=== PATIENT | male | born 1975 | race Caucasian/White ===

== ENCOUNTER 2019-12-19 07:47 | Outpatient (RCR) | payer OTHER ==
[~2019-12-19] VITALS: Ht 175.3 cm; Wt 104.9 kg
[2019-12-19] MEDS ORDERED: OMEP40CA27 PO (08:59)
[2019-12-19 09:31] LABS: BASOPHILS # (AUTO) 0.1 10^3/uL (0.0-0.1); BASOPHILS % (AUTO) 1 % (0-10); EOSINOPHILS # (AUTO) 0.3 10^3/uL (0.0-0.3); EOSINOPHILS % (AUTO) 3 % (0-10); HEMATOCRIT 47 % (40-54); HEMOGLOBIN 15.9 G/DL (13.3-17.7); LYMPHOCYTES # (AUTO) 1.3 X 10^3 (1.0-4.0); LYMPHOCYTES % (AUTO) 14 % (12-44); MEAN CORPUSCULAR HEMOGLOBIN 32 PG (25-34); MEAN CORPUSCULAR HGB CONC 34 G/DL (32-36); MEAN CORPUSCULAR VOLUME 93 FL (80-99); MEAN PLATELET VOLUME 8.8 FL (7.4-10.4); MONOCYTES # (AUTO) 0.9 X 10^3 (0.0-1.0); MONOCYTES % (AUTO) 9 % (0-12); NEUTROPHILS % (AUTO) 74 % (42-75); PLATELET COUNT 307 10^3/uL (130-400); RED CELL DISTRIBUTION WIDTH 14.8 % (10.0-14.5); WHITE BLOOD COUNT 9.6 10^3/uL (4.3-11.0)
[2019-12-19 09:33] VITALS: BP 151/110
[2019-12-19 09:45] LABS: CHLORIDE 101 MMOL/L (98-107); POTASSIUM 4.3 MMOL/L (3.6-5.0); SODIUM 139 MMOL/L (135-145)
[2019-12-19 09:47] LABS: CALCIUM 9.5 MG/DL (8.5-10.1); GLUCOSE 92 MG/DL (70-105)
[2019-12-19 09:49] LABS: CARBON DIOXIDE 30 MMOL/L (21-32)
[2019-12-19 09:51] LABS: CREATININE SERUM 1.07 MG/DL (0.60-1.30); GFR ESTIMATED > 60
[2019-12-19 09:52] LABS: BUN/CREATININE RATIO 7
== END 2019-12-19 10:02 | disposition home or self-care (01) ==
LOC: PREOP 07:47
PROVIDERS: ATTEND Otolaryngology Otolaryngology/Facial Plastic Surgery
DX: Z01.818 Encounter for other preprocedural examination (principal); Z01.810 Encounter for preprocedural cardiovascular examination; Z01.812 Encounter for preprocedural laboratory examination; Z11.59 Encounter for screening for other viral diseases; Z11.2 Encounter for screening for other bacterial diseases; J34.89 Other specified disorders of nose and nasal sinuses
CPT/HCPCS: 80048; 85025; 87081; U0002; 36415; 87635; 93005

== ENCOUNTER 2019-12-21 06:25 | Day surgery (SDC) | payer OTHER ==
[2019-12-21] VITALS (12 sets, daily range): BP systolic 152–184; BP diastolic 101–125
[~2019-12-21] VITALS: Ht 175.3 cm; Wt 104.9 kg
[~2019-12-21 06:25] MED LIST: OMEP40CA27 PO
--- OUTSIDE RECORDS SUMMARY | 2019-12-21 06:31 | XMS REPORT | Continuity of Care Document ---
Author Organization Unknown Address Unknown Phone Unavailable Allergies Active Description Code Type Severity Reaction Onset Reported/Identified Relationship to Patient Clinical Status Yes Penicillins [id number] Drug Aller gy Unknown unsure childhoo 12/19/2019 Medications There is no data. Problems There is no data. Procedures There is no data. Results Test Result Range Coronavirus SARS-CoV-2 SO 2018 - 0 08:00 Coronavirus Ab [Units/volume] in Serum Negative Negative Complete blood count (CBC) with automate d white blood cell (WBC) differential - 12/19/19 09:20 Blood leukocytes automated count (number/volume) 9.6 10*3/uL 4.3-11.0 Blood erythrocytes automated count (number/volume) 5.05 10*6/uL 4.35-5.85 Venous blood hemoglobin measurement (mass/volume) 15.9 g/dL 13.3-17.7 Blood hematocrit (volume fraction) 47 % 40-54 Automated erythrocyte mean corpuscular volume 93 [ foz_us] 80-99 Automated erythrocyte mean corpuscular h emoglobin (mass per erythrocyte) 32 pg 25-34 Automated erythrocyte mean corpuscular h emoglobin concentration measurement (mass/volume) 34 g/dL 32-36 Automated erythrocyte distribution width ratio 14. 8 % 10.0- 14.5 Automated blood platelet count (count/volume) 307 10*3/uL 130-400 Automated blood platelet mean volume measurement 8.8 [foz_us] 7.4-10.4 Automated blood neutrophils/100 leukocytes 74 % 42-75 Automated blood lymphocytes/100 leukocytes 14 % 12-44 Blood monocytes/100 leukocytes 9 % 0-12 Automated blood eosinophils/100 leukocytes 3 % 0-10 Automated blood basophils/100 leukocytes 1 % 0-10 Blood neutrophils automated count (number/volume) 7.0 10*3 1.8-7.8 Blood lymphocytes automated count (number/volume) 1.3 10*3 1.0-4.0 Blood monocytes automated count (number/volume) 0. 9 10*3 0.0-1.0 Automated eosinophil count 0.3 10*3/uL 0 .0-0.3 Automated blood basophil count (count/volume) 0.1 10*3/uL 0.0-0.1 Whole blood basic metabolic panel - 12/02 01/20 09:20 Serum or plasma sodium measurement (moles/volume) 139 mmol/L 135-145 Serum or plasma potassium measurement (moles/volume) 4.3 mmol/L 3.6-5.0 Serum or plasma chloride measurement (moles/volume) 101 mmol/L 98-107 Carbon dioxide 30 mmol/L 21-32 Serum or plasma anion gap determination (moles/volume) 8 mmol/L 5-14 Serum or plasma urea nitrogen measurement (mass/volume ) 8 mg/dL 7-18 Serum or plasma creatinine measurement (mass/volume) 1.07 mg/dL 0.60-1.30 Serum or plasma urea nitrogen/creatinine mass ratio 7 NRG Serum or plasma creatinine measurement w ith calculation of estimated glomerular filtration rate > NRG Serum or plasma glucose measurement (mass/volume) 92 mg/dL 70-105 Serum or plasma calcium measurement (mass/volume) 9.5 mg/dL 8.5-10.1 Methicillin resistant Staphylococcus aur eus (MRSA) screening culture - 12/19/19 09:20 Methicillin resistant Staphylococcus aureus (MRSA) scr eening culture NEG NRG Encounters ACCT No. Visit Date/Time Discharge Status Pt. Type Provider Facility Loc./Unit Complaint [id number] 08/04/2018 16:00:00 08/04/2018 23:59: 59 [facility] [id number] 12/21/2019 07:30:00 P EN Preadmit KRAIG CUENCA MD [facility] SDC NASOPHARYNGEAL MASS [id number] 12/19/2019 07:47:[address] Outpatient KRAIG CUENCA MD [facility] PREOP NASOPHARYNGEAL MASS
[2019-12-21] MEDS: LACTATED RINGERS 1,000 ML IV PRN ×2 (06:40→07:55)
[2019-12-21] MEDS ORDERED: fentaNYL INJECTION 100 MCG/2 ML AMP ONE (06:45)
[2019-12-21] MEDS ORDERED: proPOfol 200 MG/20 ML (DIPRIVAN) VIAL IV ONE ×2 (06:45→07:27)
[2019-12-21] MEDS ORDERED: ONDANSETRON 4 MG/2 ML (SDV) Z0FRAN ONE (06:45)
[2019-12-21] MEDS ORDERED: MIDAZOLAM 2 MG/2 ML (VERSED) VIAL ONE (06:45)
[2019-12-21] MEDS ORDERED: ROCURONIUM 10 MG/ML 5 ML SYRINGE IV ONE (06:45)
[2019-12-21] MEDS ORDERED: LACTATED RINGERS 1,000 ML IV ONE (06:45)
[2019-12-21] MEDS ORDERED: LIDOCAINE PF 2% 5 ML (XYLOCAINE) VIAL ONE (06:45)
[2019-12-21] MEDS ORDERED: DEXAMETHASONE 10 MG/ML (DECADRON) 1 ML VIAL ONE (06:47)
[2019-12-21] MEDS ORDERED: GLYCOPYRROLATE 0.2 MG/ML (ROBINUL) 2 ML VIAL ONE (06:47)
[2019-12-21] MEDS ORDERED: NEOSTIGMINE 3 MG/3 ML VIAL ONE (06:47)
[2019-12-21] MEDS ORDERED: SEVOFLURANE (ULTANE) 15 ML INHAL SOLN ONE ×4 (06:50→07:49)
--- NOTE | 2019-12-21 07:07 | Progress Note-Pre Operative ---
Pre-Operative Progress Note H&P Reviewed The H&P was reviewed, patient examined and no changes noted. Date Seen by Provider: Dec 21, 2019 Time Seen by Provider: :30 Date H&P Reviewed: Dec 21, 2019 Time H&P Reviewed: 06:30 Pre-Operative Diagnosis: Nasopharyngeal Mass KRAIG CUENCA MD Dec 21, 2019 07:06
[2019-12-21] MEDS ORDERED: NS IV 1000 ML 1,000 ML IV SCH (08:11)
--- NOTE | 2019-12-21 08:11 | Progress Note-Post Operative ---
Post-Operative Progess Note Surgeon (s)/Field Installation Technician (s) Surgeon KRAIG CUENCA MD Field Installation Technician n/a Pre-Operative Diagnosis Nasopharyngeal Mass Post-Operative Diagnosis same Post-Op Procedure Note Date of Procedure: Dec 21, 2019 Name of Procedure Performed: Removal of Nasopharyngeal Mass Description & Findings Description and Findings: n/a Anesthesia Type get Estimated Blood Loss 100cc Packing none. Specimen(s) collected/removed nasopharyngeal mass for permanaent and possible flow KRAIG CUENCA MD Dec 21, 2019 08:10
[2019-12-21] MEDS ORDERED: ONDANSETRON 4 MG/2 ML (SDV) Z0FRAN IVP PRN (08:15)
[2019-12-21] MEDS ORDERED: APAP 325 MG/10.15 ML LIQ (TYLENOL) UDC PO PRN (08:15)
[2019-12-21] MEDS ORDERED: MEPERIDINE (DEMEROL) INJ 50 MG/ML IVP ONE (08:15)
[2019-12-21] MEDS ORDERED: morphine INJ 10 MG/ML 1ML (SYR OR VIAL) IVP ONE (08:15)
[2019-12-21] MEDS ORDERED: PROMETHAZINE INJ 25 MG/ML (PHENERGAN) AMP IVP ONE (08:15)
[2019-12-21] MEDS ORDERED: HYDROcodone/APAP 5 MG/325 MG (LORTAB) TAB PO PRN (08:15)
[2019-12-21] MEDS ORDERED: HYDROmorphone 2 MG/ML VIAL (DILAUDID) IV ONE (08:15)
--- NOTE | 2019-12-21 08:29 | Anesthesia-General Post-Op ---
General Patient Condition Mental Status/LOC: Same as Preop Cardiovascular: Satisfactory Nausea/Vomiting: Absent Respiratory: Satisfactory Pain: Controlled Complications: Absent Post Op Complications Complications None Follow Up Care/Instructions Patient Instructions None needed. Anesthesia/Patient Condition Patient Condition Patient is doing well, no complaints, stable vital signs, no apparent adverse anesthesia problems. No complications reported per nursing. JOHN CHURCH CRNA Dec 21, 2019 08:29
[2019-12-21] MEDS ORDERED: LABETALOL HCL 20 MG/4 ML VIAL ONE (08:42)
[2019-12-21] MEDS ORDERED: LABETALOL HCL 100 MG/20 ML VIAL IV ONE (08:45)
[2019-12-21] MEDS ORDERED: HYDR-83 PO (09:34)
== END 2019-12-21 10:25 | disposition home or self-care (01) ==
LOC: SDC 06:25
PROVIDERS: ATTEND Otolaryngology Otolaryngology/Facial Plastic Surgery
DX: J34.89 Other specified disorders of nose and nasal sinuses (principal); I10 Essential (primary) hypertension; J45.909 Unspecified asthma, uncomplicated; K21.9 Gastro-esophageal reflux disease without esophagitis; F17.210 Nicotine dependence, cigarettes, uncomplicated; M54.9 Dorsalgia, unspecified; Z88.0 Allergy status to penicillin; Z88.6 Allergy status to analgesic agent
CPT/HCPCS: 88184; 88185; 88305

== ENCOUNTER 2021-08-15 17:05 | Emergency (ER) | payer SELFPAY ==
[~2021-08-15] VITALS: Ht 180 cm; Wt 100.0 kg
[~2021-08-15 17:05] MED LIST changes: +ACHD5005 PO; -OMEP40CA27 PO; +OMEP40CA6 PO
[2021-08-15] MEDS ORDERED: RT-ALBUTEROL/IPRATROPIUM 3 ML (DUONEB) VIAL INH STA (18:04)
--- NOTE | 2021-08-15 18:07 | ED General ---
General Chief Complaint: Respiratory Problems Stated Complaint: SOB Nursing Triage Note: Patient has presented to ER with cc of shortness of breath. He reports that he was burning brush yesterday. Since about 0200 this morning he has been more short of breath. He used his albuterol inhaler today and he took 1 breathing treatment of albuterol today as well. Source of Information: Patient, Spouse History of Present Illness Date Seen by Provider: Aug 15, 2021 Time Seen by Provider: 17:44 Initial Comments 46-year-old male presenting with complaints of increased shortness of breath and cough in the last 2 days. Since about 2 this morning he has been able to catch his breath at rest because of shortness of breath. He does have an albuterol inhaler and medicine for an albuterol nebulizer machine at home. Given doing those has not helped with his breathing. He is easily winded with minimal exertion. He denies fever, chills, headache, nausea, vomiting, nasal c ongestion. He does have high blood pressure but has not been able to take any medicine for it because he states he does not have any insurance. He has not tried to be seen by anyone for several years. Timing/Duration: 1-2 Days Severity: Severe Modifying Factors: worse with Movement Associated Systoms: Chest Pain (tightness intermittently), Cough; No Diaphoresis, No Fever/Chills, No Headaches, No Loss of Appetite; Malaise; No Nausea/Vomiting, No Rash, No Seizure; Shortness of Air; No Syncope, No Weakness Allergies and Home Medications Allergies Coded Allergies: Penicillins (Verified Allergy, Unknown, unsure childhood, 12/19/19) Patient Home Medication List Home Medication List Reviewed: Yes Chlorthalidone (Chlorthalidone) 25 Mg Tablet, 25 MG PO DAILY Prescribed by: ANTHONY BONDS on 08/15/21 1924 Hydrocodone/Acetaminophen (Hydrocodone-Acetamin 5-325 mg) 1 Each Tablet, 1-2 EACH PO Q4H PRN for PAIN-MODERATE (5-7) Prescribed by: JAY JAY DELGADO on 12/21/19 0934 Omeprazole (Omeprazole) 40 Mg Capsule.dr, 40 MG PO DAILY, (Reported) Entered as Reported by: RAMÓN BRENNER on 12/19/19 0859 Prednisone (Prednisone) 20 Mg Tab, 40 MG PO DAILY Prescribed by: ANTHONY BONDS on 08/15/211923 Review of Systems Review of Systems Constitutional: No chills, No fever; malaise EENTM: no symptoms reported Respiratory: cough, dyspnea on exertion; No hemoptysis; short of breath; No stridor; wheezing Cardiovascular: chest pain (tightness from coughing) Gastrointestinal: no symptoms reported Genitourinary: no symptoms reported Musculoskeletal: no symptoms reported Skin: No rash Psychiatric/Neurological: Denies Headache Hematologic/Lymphatic: Denies Blood Clots Past Hqasmbg-Jpesow-Ghfmve Hx Patient Social History Tobacco Use?: Yes Tobacco type used: Cigarettes Smoking Status: Current Everyday Smoker Use of E-Cig and/or Vaping dev: No Substance use?: Yes Substance type: Marijuana Alcohol Use?: Yes Alcohol type: Beer Alcohol Frequency: Couple times a week Immunizations Up To Date PED Vaccines UTD: No Seasonal Allergies Seasonal Allergies: Yes Past Medical History Surgeries: Yes (left collarbone fx, ) Tonsillectomy Respiratory: Yes Asthma Currently Using CPAP: No Currently Using BIPAP: No Cardiac: Yes (murmur until teenager) Neurological: Yes (possible one seizure as a teenager) Genitourinary: No Gastrointestinal: Yes Gastroesophageal Reflux Musculoskeletal: Yes Chronic Back Pain, Fractures Endocrine: No HEENT: Yes (nasopharygeal mass) Cancer: No Psychosocial: No Integumentary: No Blood Disorders: No Physical Exam Vital Signs Vital Signs - First Documented 08/15/21 17:20 Temp 36.7 Pulse 104 Resp 20 B/P (MAP) 180/124 (142) Pulse Ox 96 O2 Delivery Room Air Capillary Refill : Height, Weight, BMI Height: '" Weight: lbs. oz. kg; 30.00 BMI Method: General Appearance: Anxious, Moderate Distress (working hard to breath), Obese HEENT: PERRL/EOMI, Pharynx Normal Neck: Full Range of Motion, Non Tender, Supple Respiratory: Chest Non Tender, Accessory Muscle Use, Decreased Breath Sounds; No Rales; Respiratory Distress; No Rhonci, No Stridor; Wheezing Cardiovascular: Regular Rate, Rhythm, Normal Peripheral Pulses Gastrointestinal: Normal Bowel Sounds, No Pulsatile Mass, Non Tender, Soft Extremity: Normal Capillary Refill, No Pedal Edema Neurologic/Psychiatric: Alert, Oriented x3, door trimmer II-XII Norm as Tested Skin: Normal Color, Warm/Dry Progress/Results/Core Measures Suspected Sepsis SIRS Temperature: Pulse: 104 Respiratory Rate: 20 Blood Pressure 180 /124 Mean: 142 Results/Orders My Orders Orders - ANTHONY BONDS MD Chest Pa/Lat (2 View) (08/15/21 18:04) Albuterol/Ipra Inhalation Soln (Duoneb I (08/15/21 18:04) Svn Small Volume Nebulizer (08/15/21 18:04) Dexamethasone Injection (Decadron Inje (08/15/21 19:17) Albuterol Inhaler (Albuterol) (08/15/21 19:17) Vital Signs/I&O 08/15/21 08/15/21 17:20 19:27 Temp 36.7 36.7 Pulse 104 104 Resp 20 20 B/P (MAP) 180/124 (142) 180/124 Pulse Ox 96 96 O2 Delivery Room Air Room Air Capillary Refill : Blood Pressure Mean: 142 Progress Note #1: Progress Note Chest x-ray to look for signs of infiltrate, cardiomegaly, pleural effusion, pulmonary mass. Try a DuoNeb breathing treatment to help with his shortness of breath and wheezing. Recheck his blood pressure after he has had the breathing treatment and is more comfortable Progress Note #2: Progress Note Chest x-ray does not show any acute infiltrate, effusion, cardiomegaly, mass. He is breathing much easier after the DuoNeb breathing treatment. On recheck of his blood pressure is down to 167/107. He has no headache, blurred vision, chest pain, nausea, vomiting. Will give a single steroid dose to start helping with his breathing and then discharged on prednisone. Will also get him an albuterol inhaler with a spacer to help get more the medicine into his lungs. Prescribe chlorthalidone to get him started on blood pressure control. Given him information for the clinic so he can get followed up with the [facility] clinic since they would have federal and state funding to help make it more affordable for him to be seen. Give a good Rx card to help with cost of prescriptions. Diagnostic Imaging Diagonstic Imaging: Xray Plain Films/CT/US/NM/MRI: chest Comments [facility] [place], [place] NAME: MICHEL RO MED REC#: [id number] PT STATUS: REG ER : 1975 PHYSICIAN: ANTHONY BONDS MD ADMIT DATE: 08/15/21/ER FS Signed Date of Exam:08/15/21 CHEST PA/LAT (2 VIEW) EXAMINATION: Chest 2 view. HISTORY: Cough, short of breath. COMPARISON: None available. FINDINGS: Heart size and pulmonary vasculature are normal. The lungs are clear without consolidation, pleural effusion, or pneumothorax. The osseous structures are intact. Left clavicle hardware is present. IMPRESSION: No acute radiographic abnormality in the chest. Dictated by: Dictated on workstation # [id number] Dict: 08/15/211817 Trans: 08/15/211838 PJ [id number] Interpreted by: ALFRED HUMMEL DO Electronically signed by: ALFRED HUMMEL DO 08/15/211838 Reviewed: Reviewed by Me Departure Impression Primary Impression: Chronic bronchitis with acute exacerbation Additional Impression: Hypertension Qualified Codes: I10 - Essential (primary) hypertension Disposition: 01 HOME, SELF-CARE Condition: Stable Departure-Patient Inst. Decision time for Depature: 19:20 Referrals: NO,LOCAL PHYSICIAN (PCP) Primary Care Physician [facility] Call [phone] so you can be set up with a provider for follow-up Patient Instructions: COPD Diet, COPD Exacerbation, Adult ED, DASH Diet, High Blood Pressure ED, How to Use a Metered Dose Inhaler ED, How to Use a Spacer Add. Discharge Instructions: Take the steroid every day for the next 7 to 10 days to help with your breathing. Use the inhaler with spacer 2 puffs every 4-6 hours as needed for shortness of breath and wheezing. Take the medication for blood pressure to help with your elevated blood pressure readings. Call and establish care with the [facility] so you could follow with a provider and they can help with your medications and health. They have additional funding to help with cost of being seen and with your medicines. All discharge instructions reviewed with patient and/or family. Voiced understanding. Scripts Chlorthalidone (Chlorthalidone) 25 Mg Tablet 25 MG PO DAILY for High BLood Pressure for 30 Days, #30 TAB 0 Refills Prov: ANTHONY BONDS MD 08/15/21 Prednisone (Prednisone) 20 Mg Tab 40 MG PO DAILY for COPD for 7 Days, #14 TAB 0 Refills Prov: ANTHONY BONDS MD 08/15/21 ANTHONY BONDS MD Aug 15, 2021 18:06
--- NOTE | 2021-08-15 18:22 | Diagnostic Imaging Report ---
EXAMINATION: Chest 2 view. HISTORY: Cough, short of breath. COMPARISON: None available. FINDINGS: Heart size and pulmonary vasculature are normal. The lungs are clear without consolidation, pleural effusion, or pneumothorax. The osseous structures are intact. Left clavicle hardware is present. IMPRESSION: No acute radiographic abnormality in the chest. Dictated by: Dictated on workstation # [id number]
[2021-08-15] MEDS ORDERED: RT-ALBUTEROL HFA 8.5 GM INHALER IH STA (19:17)
[2021-08-15] MEDS ORDERED: CHLO25TA22 PO (19:24)
[2021-08-15] MEDS ORDERED: PRD20T PO (19:24)
[2021-08-15 19:27] VITALS: BP 180/124
== END 2021-08-15 19:28 | disposition home or self-care (01) ==
LOC: EDUNIT# 17:05 → ER FS 17:07
DX: J45.901 Unspecified asthma with (acute) exacerbation (principal); I10 Essential (primary) hypertension; K21.9 Gastro-esophageal reflux disease without esophagitis; G89.29 Other chronic pain; M54.9 Dorsalgia, unspecified; F17.210 Nicotine dependence, cigarettes, uncomplicated; E66.9 Obesity, unspecified; Z68.30 Body mass index [BMI] 30.0-30.9, adult; Z79.891 Long term (current) use of opiate analgesic; Z79.899 Other long term (current) drug therapy
CPT/HCPCS: 71046

== ENCOUNTER 2021-10-01 23:24 | Emergency (ER) | payer SELFPAY ==
[~2021-10-01] VITALS: Ht 180 cm; Wt 130.1 kg
[~2021-10-01 23:24] MED LIST changes: +CHLO25TA22 PO; +PRD20T PO
--- NOTE | 2021-10-01 23:27 | ED Cardiac General ---
History of Present Illness General Stated Complaint: CHEST TIGHTNESS History of Present Illness Date Seen by Provider: Oct 01, 2021 Time Seen by Provider: 11:30 Initial Comments 46-year-old male presents with feeling of difficulty catching his air. Patient has a history of COPD due to past history of smoking. Reports he has been using his nebulizer at home but does not feel like it helped. Patient also is concerned it may be its anxiety related. Patient's had some increased stress today. Reports that the symptoms have been present since around 4 AM this morning. He denies any increased cough, fever, chills, chest pain. Allergies and Home Medications Allergies Coded Allergies: Penicillins (Verified Allergy, Unknown, unsure childhood, 12/19/19) Patient Home Medication List Home Medication List Reviewed: Yes Azithromycin (Azithromycin) 250 Mg Tablet, 250 MG PO UD Prescribed by: KELIN DAILEY on 10/02/2136 Chlorthalidone (Chlorthalidone) 25 Mg Tablet, 25 MG PO DAILY Prescribed by: ANTHONY BONDS on 08/15/211923 Hydrocodone/Acetaminophen (Hydrocodone-Acetamin 5-325 mg) 1 Each Tablet, 1-2 EAC H PO Q4H PRN for PAIN-MODERATE (5-7) Prescribed by: JAY JAY DELGADO on 12/21/19 0934 Omeprazole (Omeprazole) 40 Mg Capsule.dr, 40 MG PO DAILY, (Reported) Entered as Reported by: RAMÓN BRENNER on 12/19/19 0859 Prednisone (Prednisone) 20 Mg Tab, 40 MG PO DAILY Prescribed by: ANTHONY BONDS on 08/15/211923 Prednisone (Prednisone) 20 Mg Tab, 40 MG PO DAILY Prescribed by: KELIN DAILEY on 10/02/21 0037 Review of Systems Review of Systems Constitutional: No chills, No fever Respiratory: Denies Cough; Shortness of Air, Wheezing Cardiovascular: Denies Chest Pain, Denies Lightheadedness, Denies Palpitations Gastrointestinal: Denies Abdomen Distended, Denies Abdominal Pain Genitourinary: No Symptoms Reported Musculoskeletal: no symptoms reported Skin: no symptoms reported Psychiatric/Neurological: See HPI Past Qribzue-Lcdhqd-Cjhlhj Hx Immunizations Up To Date PED Vaccines UTD: No Seasonal Allergies Seasonal Allergies: Yes Past Medical History Surgeries: Yes (left collarbone fx, ) Tonsillectomy Respiratory: Yes Asthma Currently Using CPAP: No Currently Using BIPAP: No Cardiac: Yes (murmur until teenager) Neurological: Yes (possible one seizure as a teenager) Genitourinary: No Gastrointestinal: Yes Gastroesophageal Reflux Musculoskeletal: Yes Chronic Back Pain, Fractures Endocrine: No HEENT: Yes (nasopharygeal mass) Cancer: No Psychosocial: No Integumentary: No Blood Disorders: No Physical Exam Vital Signs Vital Signs - First Documented 10/01/21 23:30 Temp 37.1 Pulse 112 Resp 24 B/P (MAP) 171/113 (132) Pulse Ox 95 O2 Delivery Room Air Capillary Refill : Height, Weight, BMI Height: '" Weight: lbs. oz. kg; 30.00 BMI Method: General Appearance: No Apparent Distress, Anxious HEENT: PERRL/EOMI Neck: Non Tender, Supple Respiratory: No Accessory Muscle Use, No Respiratory Distress, Wheezing (Diffuse expiratory) Cardiovascular: Regular Rate, Rhythm, No Edema Gastrointestinal: Non Tender, Soft Extremity: Normal Capillary Refill, Normal Inspection Neurologic/Psychiatric: Alert, Oriented x3, No Motor/Sensory Deficits, Normal Mood/Affect Skin: Normal Color, Warm/Dry Progress/Results/Core Measures Results/Orders Lab Results Laboratory Tests Test 10/01/21 23:53 Range/Units White Blood Count 8.7 4.3-11.0 10^3/uL Red Blood Count 4.75 4.30-5.52 10^6/uL Hemoglobin 14.2 13.3-17.7 g/dL Hematocrit 41 40-54 % Mean Corpuscular Volume 85 80-99 fL Mean Corpuscular Hemoglobin 30 25-34 pg Mean Corpuscular Hemoglobin Concent 35 32-36 g/dL Red Cell Distribution Width 12.8 10.0-14.5 % Platelet Count 319 130-400 10^3/uL Mean Platelet Volume 8.5 L 9.0-12.2 fL Immature Granulocyte % (Auto) 1 % Neutrophils (%) (Auto) 68 42-75 % Lymphocytes (%) (Auto) 20 12-44 % Monocytes (%) (Auto) 7 0-12 % Eosinophils (%) (Auto) 3 0-10 % Basophils (%) (Auto) 1 0-10 % Neutrophils # (Auto) 5.9 1.8-7.8 10^3/uL Lymphocytes # (Auto) 1.8 1.0-4.0 10^3/uL Monocytes # (Auto) 0.6 0.0-1.0 10^3/uL Eosinophils # (Auto) 0.3 0.0-0.3 10^3/uL Basophils # (Auto) 0.1 0.0-0.1 10^3/uL Immature Granulocyte # (Auto) 0.1 0.0-0.1 10^3/uL Sodium Level 131 L 135-145 MMOL/L Potassium Level 3.5 L 3.6-5.0 MMOL/L Chloride Level 91 L 98-107 MMOL/L Carbon Dioxide Level 24 21-32 MMOL/L Anion Gap 16 H 5-14 MMOL/L Blood Urea Nitrogen 11 7-18 MG/DL Creatinine 0.86 0.60-1.30 MG/DL Estimat Glomerular Filtration Rate 107 BUN/Creatinine Ratio 13 Glucose Level 164 H 70-105 MG/DL Calcium Level 9.7 8.5-10.1 MG/DL Corrected Calcium 9.5 8.5-10.1 MG/DL Magnesium Level 1.7 1.6-2.4 MG/DL Total Bilirubin 0.3 0.1-1.0 MG/DL Aspartate Amino Transf (AST/SGOT) 57 H 5-34 U/L Alanine Aminotransferase (ALT/SGPT) 75 H 0-55 U/L Alkaline Phosphatase 98 40-136 U/L Troponin I < 0.30 <0.30 NG/ML C-Reactive Protein 1.46 H <0.50 MG/DL Total Protein 8.0 6.4-8.2 GM/DL Albumin 4.3 3.2-4.5 GM/DL My Orders Orders - DAILEY,KELIN L DO Albuterol/Ipra Inhalation Soln (Duoneb I (10/01/21 23:45) Methylprednisolone Sod Succ (Solu-Medrol (10/01/21 23:39) Svn Small Volume Nebulizer (10/01/21 23:39) Chest Pa/Lat (2 View) (10/01/21 23:39) Cbc With Automated Diff (10/01/21 23:39) Comprehensive Metabolic Panel (10/01/21 23:39) Magnesium (10/01/21 23:39) Crp Fs (10/01/21 23:39) Troponin I Fs (10/01/21 23:39) Ekg Tracing (10/01/21 23:39) Monitor-Rhythm Ecg Trace Only (10/01/21 23:39) Medications Given in ED Current Medications Medications Dose Ordered Sig/Braden Route Start Time Stop Time Status Last Admin Dose Admin Albuterol/ Ipratropium 3 ml ONCE ONCE INH 10/01/21 23:45 10/01/21 23:46 DC 10/02/21 00:04 3 ML Vital Signs/I&O 10/01/21 10/02/21 23:30 00:20 Temp 37.1 Pulse 112 98 Resp 24 20 B/P (MAP) 171/113 (132) 156/98 Pulse Ox 95 94 O2 Delivery Room Air Room Air Progress Progress Note : Progress Note Patient reports he was feeling significantly better following his breathing treatment. Patient oxygen did drop slightly when he was started to fall asleep. I suspect he is got some underlying sleep apnea. I did discuss this with him and recommended a sleep study. Patient reports that he is scheduled to see a senior clinical study manager next week for further evaluation. Patient will be given azithromycin and a steroid for a COPD exacerbation. I also recommended he use some Flonase since he is got some nasal congestion and feels like his nares are swollen. Patient was stable and discharged home Initial ECG Impression Date: Oct 01, 2021 Initial ECG Impression Time: 23:47 Initial ECG Rate: 108 Initial ECG Rhythm: S.Tach Comment sinus tach, otherwise normal Diagnostic Imaging Diagonstic Imaging: Xray Plain Films/CT/US/NM/MRI: chest Comments unchanged for 08/2021 Reviewed: Reviewed by Me Departure Impression Primary Impression: Chronic bronchitis with acute exacerbation Disposition: 01 HOME, SELF-CARE Condition: Stable Departure-Patient Inst. Referrals: NO,LOCAL PHYSICIAN (PCP/Family) Primary Care Physician Patient Instructions: Chronic Obstructive Pulmonary Disease (COPD) (DC), Obstructive Sleep Apnea, Adult (DC) Add. Discharge Instructions: Flonase or Nasacort nasal spray use as directed on bottle Please discuss a sleep study with your primary care provider or pulmonology Scripts Prednisone (Prednisone) 20 Mg Tab 40 MG PO DAILY, #6 TAB 0 Refills Prov: KELIN DAILEY DO 10/02/21 Azithromycin (Azithromycin) 250 Mg Tablet 250 MG PO UD, #6 TAB TAKE 2 TABLETS ON DAY ONE THEN TAKE 1 TABLET DAILY FOR FOUR MORE DAYS Prov: KELIN DAILEY DO 10/02/21 KELIN DAILEY DO Oct 01, 2021 23:27
[2021-10-01] MEDS ORDERED: methylPREDNISolone 125 MG (Solu-MEDROL) VIAL IV STA (23:39)
[2021-10-01] MEDS ORDERED: RT-ALBUTEROL/IPRATROPIUM 3 ML (DUONEB) VIAL INH ONE (23:45)
[2021-10-01 23:58] LABS: BASOPHILS # (AUTO) 0.1 10^3/uL (0.0-0.1); BASOPHILS % (AUTO) 1 % (0-10); EOSINOPHILS # (AUTO) 0.3 10^3/uL (0.0-0.3); EOSINOPHILS % (AUTO) 3 % (0-10); HEMATOCRIT 41 % (40-54); HEMOGLOBIN 14.2 g/dL (13.3-17.7); LYMPHOCYTES # (AUTO) 1.8 10^3/uL (1.0-4.0); LYMPHOCYTES % (AUTO) 20 % (12-44); MEAN CORPUSCULAR HEMOGLOBIN 30 pg (25-34); MEAN CORPUSCULAR HGB CONC 35 g/dL (32-36); MEAN CORPUSCULAR VOLUME 85 fL (80-99); MEAN PLATELET VOLUME 8.5 fL (9.0-12.2); MONOCYTES # (AUTO) 0.6 10^3/uL (0.0-1.0); MONOCYTES % (AUTO) 7 % (0-12); NEUTROPHILS # (AUTO) 5.9 10^3/uL (1.8-7.8); NEUTROPHILS % (AUTO) 68 % (42-75); PLATELET COUNT 319 10^3/uL (130-400); WHITE BLOOD COUNT 8.7 10^3/uL (4.3-11.0)
[2021-10-02 00:22] LABS: BUN/CREATININE RATIO 13; CALCIUM 9.7 MG/DL (8.5-10.1); CARBON DIOXIDE 24 MMOL/L (21-32); CHLORIDE 91 MMOL/L (98-107); CREATININE SERUM 0.86 MG/DL (0.60-1.30); GFR ESTIMATED 107; GLUCOSE 164 MG/DL (70-105); POTASSIUM 3.5 MMOL/L (3.6-5.0); SODIUM 131 MMOL/L (135-145)
[2021-10-02 00:23] LABS: ALANINE AMINOTRANSFERASE 75 U/L (0-55); ALBUMIN 4.3 GM/DL (3.2-4.5); ALKALINE PHOSPHATASE 98 U/L (40-136); BILIRUBIN,TOTAL 0.3 MG/DL (0.1-1.0); MAGNESIUM 1.7 MG/DL (1.6-2.4)
[2021-10-02] MEDS ORDERED: PRD20T PO (00:37)
[2021-10-02] MEDS ORDERED: AZIT250T12 PO (00:37)
[2021-10-02 00:45] VITALS: BP 146/85
--- NOTE | 2021-10-02 07:11 | Diagnostic Imaging Report ---
INDICATION: Shortness of breath. Comparison with 08/15/2021. FINDINGS: The lungs are well-aerated and remain clear without air-trapping. The heart is not enlarged. No evidence of pulmonary edema. No pneumothorax or pleural effusion. No bony abnormalities. IMPRESSION: Stable appearing PA and lateral chest. Dictated by: Dictated on workstation # [id number]
== END 2021-10-02 00:45 | disposition home or self-care (01) ==
LOC: EDUNIT# 23:24 → ER FS 23:26
DX: J44.1 Chronic obstructive pulmonary disease with (acute) exacerbation (principal)
CPT/HCPCS: 36415; 71046; 80053; 83735; 84484; 85025; 86141; 93005; 93041

== ENCOUNTER → 2021-11-12 | Outpatient (CLI) | payer OTHER ==
[~2021-11-12] MED LIST changes: +AZIT250T12 PO
== END ==
LOC: CARDFS 12:59
PROVIDERS: ATTEND Nurse Practitioner Family
DX: I11.9 Hypertensive heart disease without heart failure (principal)
CPT/HCPCS: 93306

== ENCOUNTER → 2021-12-21 | Outpatient (CLI) | payer OTHER ==
[~2021-12-21] MED LIST changes: +RT-ALBUTEROL SULF 2.5 MG/3 ML PRE-MIX VIAL INH ONE
== END ==
LOC: RT 15:45
PROVIDERS: ATTEND Nurse Practitioner Family
DX: J44.9 Chronic obstructive pulmonary disease, unspecified (principal); E66.01 Morbid (severe) obesity due to excess calories
CPT/HCPCS: 94060; 94726; 94729

== ENCOUNTER 2022-03-24 19:24 | Outpatient (CLI) | payer MEDICAID ==
[~2022-03-24 19:24] MED LIST changes: -RT-ALBUTEROL SULF 2.5 MG/3 ML PRE-MIX VIAL INH ONE
== END 2022-03-25 06:00 | disposition home or self-care (01) ==
LOC: SLEEP 19:24
PROVIDERS: ATTEND Nurse Practitioner Family
DX: G47.10 Hypersomnia, unspecified (principal); J44.9 Chronic obstructive pulmonary disease, unspecified; E66.01 Morbid (severe) obesity due to excess calories; K21.9 Gastro-esophageal reflux disease without esophagitis; F12.10 Cannabis abuse, uncomplicated; Z72.0 Tobacco use
CPT/HCPCS: 95811

== ENCOUNTER → 2022-12-21 | Outpatient (CLI) | payer MEDICAID ==
[~2022-12-21] MED LIST changes: +RT-ALBUTEROL SULF 2.5 MG/3 ML PRE-MIX VIAL INH ONE
== END ==
LOC: RT 08:12
PROVIDERS: ATTEND Nurse Practitioner Family
DX: J44.9 Chronic obstructive pulmonary disease, unspecified (principal)
CPT/HCPCS: 94060; 94726; 94729